=== PATIENT | female | born 1950 | race Caucasian/White ===

== ENCOUNTER → 2021-08-14 | Outpatient (CLI) | payer MEDICARE, OTHER ==
--- NOTE | 2021-08-15 06:44 | CT ---
EXAMINATION TYPE: CT sinus wo con DATE OF EXAM: 08/14/2021 COMPARISON: NONE HISTORY: congestion, c/o pain and pressure to nasal area CT DLP: 435.9 mGycm. Automated Exposure Control for Dose Reduction was Utilized. TECHNIQUE: CT scan of the sinuses is performed without contrast, axial images are obtained, coronal r eformatted images are also reviewed. FINDINGS: The paranasal sinuses including the frontal, ethmoid, sphenoid, and maxillary sinuses bila terally are well-aerated without abnormal opacification or suspicious air-fluid levels. The ostiomea liz complex is patent bilaterally on the coronal images. Nasal septum is deviated to right of midline inferiorly Visualized portion of brain parenchyma is unremarkable. The globes are intact bilaterally. IMPRESSION: The sinuses are clear and the ostiomeatal complex is patent bilaterally.
--- NOTE | 2021-08-15 06:56 | CT ---
EXAMINATION TYPE: CT iac wo con DATE OF EXAM: 08/14/2021 COMPARISON: NONE HISTORY: ringing in left ear CT DLP: 150 mGycm. Automated Exposure Control for Dose Reduction was Utilized. TECHNIQUE: CT scan of internal auditory canal is performed without contrast, thin cut axial images ar e obtained, coronal reformatted images are also reviewed. FINDINGS: The external auditory canals are patent bilaterally. Mastoid air cells show no evidence of abnormal opacification bilaterally. The middle ear ossicles are symmetric and unremarkable. There is no evidence of suspicious surroundi ng soft tissue density to suggest cholesteatoma. The scutum is preserved bilaterally. The cochlea and the semicircular canals are symmetric and unremarkable. There is satisfactory bony co vering of the superior semicircular canal on the left, this is not definitive on the right for refere nce coronal images 108 through 110. Vestibular aqueduct and internal carotid canal appear unremarkable. Temporomandibular joints are maintained bilaterally. Visualized paranasal sinuses are grossly clear. Visualized portion brain parenchyma is felt within normal limits. 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 Source of patient's ringing sensation left ear is not identified.
== END | disposition home or self-care (01) ==
LOC: RADCTMAIN 17:29
PROVIDERS: ATTEND Otolaryngology
DX: H93.12 Tinnitus, left ear (principal); R09.81 Nasal congestion
CPT/HCPCS: 70480; 70486

== ENCOUNTER → 2024-11-12 | Outpatient (CLI) | payer MEDICARE, OTHER ==
[2024-11-12 12:46] LABS: African American GFR (CKD) 87 (>60 ml/min/1.73 sqM); Blood Urea Nitrogen 16 mg/dL (7-17); Non-African American GFR(CKD) 76 (>60 ml/min/1.73 sqM)
--- NOTE | 2024-11-12 13:57 | CT ---
CT urogram HISTORY: Microscopic hematuria COMPARISON: None TECHNIQUE: Multiple axial images are obtained through the abdomen and pelvis before and after the une ventful administration of nonionic IV contrast. Postcontrast delayed images were obtained. FINDINGS: Lung bases are clear. On the pre-IV contrast images, there are no renal calcifications, ureteral calcifications are urinar y bladder calcifications. The gallbladder is normal and there is no distention or biliary ductal dilatation. There are no focal masses within the liver, pancreas, spleen or adrenal glands and there is no organo megaly. Kidneys excrete contrast promptly and symmetrically and there is no solid renal mass, hydronephrosis or filling defect within the renal collecting systems, ureters or urinary bladder. The bowel loops are normal in caliber and there is no dilatation or obstruction. No inflammatory jessica ges are identified in the bowel wall or mesentery. There is no free intraperitoneal air or fluid. There is no pelvic mass, free fluid, abscess or adenopathy. There is moderate to marked degenerative disease at the L4-5 level and mild degenerative disease at t he L5-S1 level. IMPRESSION: 1. No renal calcification, renal mass, hydronephrosis or filling defect within the renal collecting s ystems, ureters or urinary bladder. 2. 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 [facility], Workstation: [id number] 11/12/2024 1:55 PM
== END | disposition home or self-care (01) ==
LOC: RADCTMAIN 11:55
PROVIDERS: ATTEND Urology
DX: M51.360 Other intervertebral disc degeneration, lumbar region with discogenic back pain only (principal); R31.1 Benign essential microscopic hematuria
CPT/HCPCS: 82565; 84520; 74178; 36415; 74400; Q9967